=== PATIENT | male | born 1985 | race Two or more races ===

== ENCOUNTER 2024-01-16 18:27 | Emergency (ER) | payer MEDICAID, SELFPAY ==
[2024-01-16 18:28] VITALS: BP 132/84; PULSE 85; RESP 19; TEMP 37; O2SAT 98; BMI 27.4
--- NOTE | 2024-01-16 18:58 | XR_ITS ---
EXAMINATION: Ankle, left ankle 3 views. Technique: Ankle AP, oblique, lateral 3 views Date and time of exam: January 16, 2024 1908 hrs. Indications: Left ankle swelling beginning 2 days ago Findings: Healed fractures distal tibial and fibular shaft No acute fracture No ankle dislocation Impression: No acute fracture
[2024-01-16 19:31] LABS: Basophils % (Auto) 0 % (0-2.5); Eosinophils # (Auto) 0.1 Thou/mm3 (0.0-0.5); Eosinophils % (Auto) 1 % (0-10); Hematocrit 41.5 % (41.0-53.0); Hemoglobin 14.5 g/dL (13.5-16.0); Immature Granulocytes % (Auto) 0 % (0-0); Immature Granulocytes Auto 0.03 Thou/mm3 (0.00-0.00); Lymphocytes # (Auto) 2.1 Thou/mm3 (1.0-4.8); Lymphocytes % (Auto) 18 % (10-50); Mean Corpuscular HGB Conc 34.9 g/dl (31.0-37.0); Mean Corpuscular Hemoglobin 30.7 pg (25.0-35.0); Mean Corpuscular Volume 88 fL (80-100); Monocytes # (Auto) 0.8 Thou/mm3 (0.0-0.8); Monocytes % (Auto) 7 % (0-12); Neutrophils # (Auto) 8.5 Thou/mm3 (1.8-7.7); Neutrophils % (Auto) 73 % (37-80); Nucleated Red Blood Cell % 0 /100 WBC (0); Platelet Count 281 Thou/mm3 (140-440); RDW Standard Deviation 39.6 fL (35.1-43.9); Red Blood Count 4.73 Miln/mm3 (4.50-5.90); White Blood Count 11.6 Thou/mm3 (3.8-10.6)
[2024-01-16 19:42] LABS: Alanine Aminotransferase 17 U/L (10-49); Albumin, Serum 4.7 gm/dL (3.5-5.0); Albumin/Globulin Ratio 1.7 (1.2-2.2); Alkaline Phosphatase 63 U/L (46-116); Anion Gap 6 (7-16); Aspartate Amino Transferase 13 U/L (0-34); BUN/Creatinine Ratio 13 Ratio (12-20); Bilirubin,Total 0.7 mg/dL (0.3-1.2); Blood Urea Nitrogen 15 mg/dL (9-23); C-Reactive Protein 7.4 mg/dL (0.0-0.9); Calcium 9.4 mg/dL (8.3-10.6); Calcium (Corrected) 9.4 mg/dL (8.5-10.1); Carbon Dioxide 28.7 mMol/L (20.0-31.0); Chloride 102 mMol/L (98-107); Creatinine (Component) 1.2 mg/dL (0.6-1.3); Estimated Creatinine Clearance 83.5 mL/min (>60); Globulin 2.7 gm/dL (2.3-3.5); Glucose 102 mg/dL (74-106); Osmolality,Calculated 274 (275-295); Potassium 3.8 mMol/L (3.4-5.1); Sodium 137 mMol/L (136-145); Total Protein 7.4 gm/dL (5.7-8.2); Uric Acid 6.9 mg/dL (3.7-9.2); eGFR > 60 See Note
[2024-01-16 19:47] LABS: Sed Rate (ESR) 25 mm/hr (0-15)
[2024-01-16] MEDS: KETOROLAC INJ 60 MG/2 ML VIAL IM (20:54)
--- NOTE | 2024-01-16 21:01 | EDNOTE_ITS ---
Lower Extremity Injury RME/HPI General Chief Complaint: Ankle/Foot Injury Stated Complaint: left foot pain/swelling x 4 days Time Seen by Provider: 01/16/24 18:58 Arrival date/time: 01/16/24 18:27 38M with no significant PMH presents to ED with L ankle pain/swelling for several days w/o fall/trauma. Patient denies recent cut and previous surgery, as well as history of DM and drug/alcohol use. Limitations: no limitations Related Data Home Medications ?Medication ?Instructions ?Recorded ?Confirmed No Known Home Medications 02/15/23 02/15/23 Allergies Allergy/AdvReac Type Severity Reaction Status Date / Time Penicillins Allergy Mild Rash Verified 05/22/17 20:36 acetaminophen [From Tylenol] Allergy Rash Verified 01/16/24 18:28 Review of Systems Review of Systems Systems Reviewed: All systems reviewed, normal except as documented Constitutional Constitutional: Reports system reviewed and no additional complaints, except as documented, Denies fever(s) and Denies headache(s) ENT Ears, Nose, Mouth, and Throat: Denies disequilibrium and Denies headache(s) Cardiovascular Cardiovascular: Reports system reviewed and no additional complaints, except as documented, Denies chest pain and Denies dyspnea Respiratory Respiratory: Reports system reviewed and no additional complaints, except as documented, Denies cough and Denies dyspnea Gastrointestinal Gastrointestinal: Reports system reviewed and no additional complaints, except as documented, Denies abdominal pain, Denies nausea and Denies vomiting Musculoskeletal Musculoskeletal: Reports as per HPI, Reports arthralgias and Reports joint swelling Neurologic Neurologic: Reports system reviewed and no additional complaints, except as documented, Denies confusion, Denies disequilibrium and Denies headache(s) Psychiatric Psychiatric: Denies confusion Past Medical History Past Medical History CARDIAC: Negative Cardiac Disorders or Congestive Heart Failure RESPIRATORY: Negative Chronic Obstructive Pulmonary Disease (COPD) or Asthma GENITOURINARY: Negative Renal Disease ENDOCRINE: Negative Diabetes Mellitus Type 1 or Diabetes Mellitus Type 2 HEMATOLOGIC: Negative Sickle Cell Disease Social History SMOKING STATUS: Never smoker ED Exam General Limitations: Present no limitations General appearance: Present alert and in no apparent distress Head Head exam: Present atraumatic Eye Eye exam: Present normal appearance, PERRL and EOMI ENT ENT exam: Present normal exam, normal oropharynx and mucous membranes moist Neck Neck exam: Present normal inspection, full ROM and trachea midline Chest Chest inspection: Present normal inspection and symmetric chest wall rise Respiratory Respiratory exam: Present normal lung sounds bilaterally Cardiovascular Cardiovascular exam: Present regular rate, normal rhythm and normal heart sounds Abdominal Exam Abdominal exam: Present soft and normal bowel sounds Extremities Exam Extremities exam: Present full ROM Expanded Lower Extremity Exam Ankle exam: Present tenderness (L ), swelling and erythema (mild but not of skin) Back Exam Back exam: Present normal inspection and full ROM Neurological Exam Neurological exam: Present alert, oriented X3 and CN II-XII intact Psychiatric Psychiatric exam: Present normal affect and normal mood Skin Skin exam: Present warm, dry, intact and normal color Course Quality Measures none Orders Category Date Time Status Crutches .NOW Care 01/16/24 20:49 Active fernando wrap [Splint / Immobilizer] STAT Care 01/16/24 20:49 Active XR ankle comp LT min 3V Stat Exams 01/16/24 18:58 Completed CBC Stat Lab 01/16/24 19:14 Completed CMP [Comprehensive Metabolic Panel] Stat Lab 01/16/24 19:14 Completed CRP [C-Reactive Protein] Stat Lab 01/16/24 19:14 Completed ESR [Sed Rate (ESR)] Stat Lab 01/16/24 19:14 Completed Uric Acid Stat Lab 01/16/24 19:14 Completed Ketorolac Inj [Toradol Inj] Med 01/16/24 20:49 Discontinued 60 mg IM X1 ONE Vital Signs Vital signs: Vital Signs Temperature 98.6 F 01/16/24 18:28 Pulse Rate 85 01/16/24 18:28 Respiratory Rate 19 01/16/24 18:28 Blood Pressure 132/84 H 01/16/24 18:28 Pulse Oximetry (%) 98 01/16/24 18:28 Oxygen Delivery Method Room Air 01/16/24 18:28 O2 at 98% on RA and WNLs Extremity Injury, Lower MDM Narrative MDM Narrative:: 38M with no significant PMH presents to ED with L ankle pain/swelling for several days w/o fall/trauma. Patient denies recent cut and previous surgery, as well as history of DM and drug/alcohol use. Physical exam reveals L ankle swelling/tenderness and mild redness, but not of the skin. ROM mostly intact. Cap refill normal. Patient is afebrile, calm, and alert. XR reveals no acute abnormalities. Minimal leukocytosis. Elevation in ESR/CRP, but normal uric acid. Likely inflammatory vs infectious process. Will treat conservatively but counseled on infection and compartment syndrome. Patient data External records reviewed:: [facility] previous records Clinical information provided by:: patient Social determinants that could affect healthcare access:: none Patient has the following chronic illnesses:: none How is presenting disease/condition affected by chronic disease/condition?: no chronic disease Evaluation data The following diagnostics were reviewed and interpreted by me:: lab results and radiology exam(s) Lab and/or radiology exams considered but not ordered:: ordered Interpretation Summary: above Medications / Prescriptions Medications or Prescriptions considered but not ordered:: ordered Medication administrations:: Medication Administration History Discontinued Medications Ketorolac Tromethamine (Ketorolac Inj 60 Mg/2 Ml Vial) 60 mg IM X1 ONE Stop: 01/16/24 20:50 Last Admin: 01/16/24 20:54 Dose: 60 mg Documented By: CVL above Consultations Consultation(s) initiated? (list below): No Diagnosis Extremity Injury, Lower Differential Diagnosis: ankle sprain and strain, acute internal derangement of knee, puncture wound of foot, fracture of toe, ankle fracture and other (ankle swelling) Most likely diagnosis given after review of the tests above:: ankle swelling Admission Indicated Admission indicated?: not indicated Admission Request Was there a request for admission?: No Disposition Plan Disposition Plan: Discharge Discharge Attestation Discharge Attestation: The patient and all family members were given an opportunity to ask questions and understood the discharge instructions. Discharge instructions specifically effects, indications for sooner follow up or return to the emergency department, and the expected course of current diagnosis. Patient condition: Stable Discharge Plan Plan Patient Disposition: HOME (Self Care) Disposition Comment: Stable Prescriptions/Referrals Prescriptions/Med Rec: No Action No Known Home Medications Referrals: No Primary/Family,Physician [Primary Care Provider] - In 1 week Problem List Clinical Impression: Ankle swelling Patient/Caregiver Discharge Instructions Education Materials: ED RICE Additional Instructions: Please follow-up with PCP within 24-48 hours and return immediately if symptoms worsen. If problem persists, recommend outpatient PT and/or MRI follow-up. In the meantime, rest, use ice/heat, and/or compression. Print Language: Thai Stand Alone Forms: Patient Portal Info Letter LOWELL/HITESH Supervising Physician LOWELL/HITESH Supervising Physician: Dr. Vitale
[2024-01-16 21:03] VITALS: RESP 18
== END 2024-01-16 21:04 | disposition home or self-care (01) ==
PROVIDERS: Physician Assistant; Emergency Provider Emergency Medicine
DX: M25.472 Effusion, left ankle (principal)
CPT/HCPCS: 36415; 73610; 80053; 84550; 85025; 85652; 86140; 96372; 99283; J1885